=== PATIENT | female | born 1955 | race Asian ===

== ENCOUNTER 2019-05-30 12:11 | Emergency (ER) | payer OTHER, MEDICAID ==
[~2019-05-30] VITALS: Ht 154.9 cm; Wt 54.4 kg
[2019-05-30 12:51] VITALS: Ht 154.9 cm; Wt 54.4 kg
[2019-05-30 15:54] VITALS: BP 136/59
== END 2019-05-30 14:54 | disposition home or self-care (01) ==
LOC: ED 12:11
DX: S52.591A Other fractures of lower end of right radius, initial encounter for closed fracture (principal); S52.611A Displaced fracture of right ulna styloid process, initial encounter for closed fracture; S00.81XA Abrasion of other part of head, initial encounter; S80.212A Abrasion, left knee, initial encounter; S00.31XA Abrasion of nose, initial encounter; S09.8XXA Other specified injuries of head, initial encounter; Z90.710 Acquired absence of both cervix and uterus; W01.0XXA Fall on same level from slipping, tripping and stumbling without subsequent striking against object, initial encounter; Y93.89 Activity, other specified; Y92.89 Other specified places as the place of occurrence of the external cause; Y99.8 Other external cause status
CPT/HCPCS: 90715; J1885; Q0092